=== PATIENT | female | born 1950 | race Caucasian/White ===

== ENCOUNTER 2025-08-14 06:56 | Emergency (ER) | payer MEDICAID, MEDICARE ==
[2025-08-14 07:38] LABS: White Blood Cell (WBC) Count 7.3 10x3/uL (4.8-10.8)
[2025-08-14 07:39] LABS: Hematocrit 43.1 % (36.0-47.0); Hemoglobin 15.5 g/dL (12.0-16.0); Manual Diff?? YES; Mean Corpuscular Hemoglobin 29.9 pg (27.0-31.0); Mean Corpuscular Volume 83.2 fl (78.0-98.0); Platelet Count 315 10x3/uL (130-400); Red Blood Cell (RBC) Count 5.12 mill/uL (4.20-5.40)
[2025-08-14 07:48] LABS: ALT (SGPT) 16 U/L (Less than 34); AST (SGOT) 18 U/L (11-34); Albumin 3.7 g/dL (3.1-4.5); Alkaline Phosphatase 74 U/L (40-110); Anion Gap 17 mmol/L (10-20); BUN (Urea Nitrogen) 9 mg/dL (9.8-20.1); Bilirubin, Total 0.5 mg/dL (0.3-1.2); Calc. Creatinine Clearance 0 mL/min (70-130); Calcium 9.2 mg/dL (7.8-10.44); Carbon Dioxide 24 mmol/L (23-31); Chloride 102 mmol/L (98-107); Globulin 3.1 g/dL (2.4-3.5); Glucose 124 mg/dL (83-110); Potassium 4.2 mmol/L (3.5-5.1); Sodium 139 mmol/L (136-145)
[2025-08-14 07:49] LABS: MDiff Complete? YES; Platelet Adequacy Comment Platelets Normal
[2025-08-14 07:53] LABS: Bicarbonate (HCO3v) 26.7 mmol/L (22.0-28.0); CO2 Tension (PvCO2) 48.1 mmHg (42.0-51.0); Calcium, Ionized 1.25 mmol/L (1.15-1.33); Chloride 104 mmol/L (98-107); Hemoglobin - Calc 15.6 g/dL (12.0-16.0); Potassium 4.1 mmol/L (3.5-5.1); Sodium 139 mmol/L (138-145); T. Carbon Dioxide 28.2 mmol/L (22.0-28.0); vO2 Saturation-calc 64.5 % (60.0-85.0)
[2025-08-14 07:53] LABS: Troponin I Less than 0.010 ng/mL (< 0.028)
[2025-08-14] MEDS ORDERED: Iopamidol 370 76% 100 ML VIAL ONE (09:00)
[2025-08-14] MEDS ORDERED: diphenhydrAMINE 50 MG/ML VIAL ONE (09:10)
[2025-08-14] MEDS ORDERED: Famotidine/PF 20 mg/2ml Vial ONE (09:10)
[2025-08-14 09:19] LABS: Glucose, Urine (Dipstick) Negative (Negative); Leukocyte Negative (Negative); Protein, Urine (Dipstick) 30 mg/dL (Neg-Trace); Specific Gravity, Urine 1.015 (1.005-1.030)
[2025-08-14 09:20] LABS: Bacteria/HPF Rare-Few HPF (None Seen); CAUTI Indications for Culture Fever or rigors; RBC/HPF 0-3 HPF (0-3); WBC/HPF 0-3 HPF (0-3)
[2025-08-14 09:21] LABS: Urine Culture Reflex No No
[2025-08-14] MEDS ORDERED: Benzonatate 100 MG CAP ONE ×2 (09:27→09:31)
== END 2025-08-14 11:50 | disposition home or self-care (01) ==
LOC: NAV ERS 06:56
DX: J20.9 Acute bronchitis, unspecified (principal); J42 Unspecified chronic bronchitis; R09.02 Hypoxemia; F17.210 Nicotine dependence, cigarettes, uncomplicated
CPT/HCPCS: 71045; 71275; 80053; 81001; 82330; 82435; 82803; 83605; 83880; 84132; 84295; 84484; 85014; 85025; 85379; 87040; 87428; 93005; 96374; 96375; J1200; J1308; J2919; J7030; Q9967